=== PATIENT | female | born 1930 | race Caucasian/White ===

== ENCOUNTER 2016-11-25 08:41 | Day surgery (SDC) | payer MEDICARE ==
[~2016-11-25] VITALS: Ht 165.1 cm; Wt 61.0 kg
[2016-11-25 08:07] VITALS: BP 150/83; PULSE 59; RESP 16; O2SAT 96
[2016-11-25 08:32] VITALS: BP 184/87; PULSE 75; RESP 14; O2SAT 98
[2016-11-25 08:35] VITALS: BP 184/83; PULSE 70; RESP 16; O2SAT 96
[~2016-11-25 08:41] MED LIST: ALLERCLEAR PO; ASPI-973 PO; Acetaminophen PO; CHOL500011 PO; DOCU-41 PO; FURO-129 PO; GABA-500 PO; GUAI100G2 PO; LACT1CAP73 PO; LOVA20TA PO; MULT-1018 PO; PANT40TA3 PO; POLY17PO6 PO; THIO300C PO; VITA200C61 PO; [UNRECOGNIZED DRUG - OTHER] PO
[2016-11-25] MEDS ORDERED: MethylprednisoLONE Depot 80 mg/mL Inj ONE (08:42)
[2016-11-25] MEDS ORDERED: Iohexol 240 mg/mL 10 mL Inj ONE (08:42)
--- NOTE | 2016-11-25 14:55 | PCM.PROC ---
Procedure Note Date of Service: November 25, 2016 Pre Procedure Diagnosis: PROCEDURE: Lumbar Interlaminar epidural steroid injection. L5-S1 ASA / ANTI-COAGULATION . No asa x 7 days. PRE-PROCEDURE DIAGNOSIS: Lumbar spinal stenosis POST-PROCEDURE DIAGNOSIS: same INDICATION: 85-year-old patient with bilateral leg and back pain consistent with lumbar spinal stenosis with neurogenic claudication PERFORMED BY: Jhonny Brooks MD DESCRIPTION OF PROCEDURE: Patient was met in the holding area. Consent was signed, site was confirmed and all questions were answered. Patient was taken to the procedure suite and placed prone on the procedure table. Area was prepped and draped in sterile fashion. Local anesthesia with 1% lidocaine was injected. An 18-gauge Touhy needle was advanced toward the interlaminar space using fluoroscopic guidance after optimizing the AP view. A loss of resistance syringe was attached as we approached the epidural space in the lateral view. After [id number] was obtained, radioopaque contrast was injected under live fluro which confirmed epidural placement without intravascular uptake. Then , 80 mg depomedrol was injected without difficulty. ANESTHESIA: Local. EBL: None. No Blood Products Used COMPLICATIONS: None SPECIMENS: None POST-PROCEDURE DISPOSITION: Patient was returned to the holding area in stable condition. They were discharged home when all discharge criteria were met. Evaluation/Physical Exam before discharge revealed: DISCHARGE MEDICATIONS: FOLLOW UP: Return to clinic in 4 weeks Jhonny Brooks MD * Pain Management * Anesthesiology .ED: Y: Patient given care and follow up instructions Jhonny Brooks MD November 25, 2016 14:55
== END 2016-11-25 23:59 | disposition home or self-care (01) ==
LOC: END 08:41
PROVIDERS: ATTEND Anesthesiology Pain Medicine
DX: M48.06 Spinal stenosis, lumbar region (principal); G60.0 Hereditary motor and sensory neuropathy
CPT/HCPCS: 62323; J1040

== ENCOUNTER 2016-11-28 23:04 | Emergency (ER) | payer MEDICARE ==
[~2016-11-28] VITALS: Ht 165.1 cm; Wt 61.4 kg
[2016-11-28 23:09] VITALS: BP 191/98; PULSE 110; RESP 18
[2016-11-29 00:07] LABS: APPEARANCE,URINE CLEAR (CLEAR,HAZY); COLOR,URINE YELLOW (YELLOW); OCCULT BLOOD,URINE TRACE (NEGATIVE); PH,URINE 5.5 (5.0-8.0); UROBILINOGEN,URINE NORMAL (NORMAL)
--- NOTE | 2016-11-29 00:33 | ED.REPORT ---
HPI- Female Date of Service November 29, 2016 ED Provider: Kyler Grande MD An 85 year old female with a medical history including atrial fibrillation, Edyplzp-Bbvvj-Sqibg disease, UTI, and bladder cancer s/p TURBT x2 presents to the ED reporting foul-smelling urine onset today. The patient also reports mild lower abdominal pain and diarrhea. She denies other symptoms. The patient has had similar symptoms in the past associated with a UTI. Nursing Notes Stated Complaint: POSSIBLE UTI Chief Complaint: Female Abdominal Pain Nursing Notes Reviewed: Yes Allergies: Coded Allergies: hydroxyzine (Verified Allergy, Severe, profound hypotension, 11/24/15) meperidine (Verified Allergy, Severe, profound hypotension, 11/24/15) Quinolones (Verified Allergy, Mild, 11/24/15) hydrocodone (Verified Allergy, Mild, 11/24/15) amiodarone (Verified Allergy, Unknown, AVOID IN CMT DISEASE, 11/24/15) azithromycin (Verified Allergy, Unknown, unknown, 11/24/15) chloramphenicol (Verified Allergy, Unknown, AVOID IN CMT DISEASE, 11/24/15) cisplatin (Verified Allergy, Unknown, AVOID IN CMT DISEASE, 11/24/15) dapsone (Verified Allergy, Unknown, AVOID IN CMT DISEASE, 11/24/15) disulfiram (Verified Allergy, Unknown, AVOID IN CMT DISEASE, 11/24/15) doxazosin (Verified Allergy, Unknown, 12/02/15) doxorubicin HCl (Verified Allergy, Unknown, AVOID IN CMT DISEASE, 11/24/15) hydralazine (Verified Allergy, Unknown, AVOID IN CMT DISEASE, 11/24/15) isoniazid (Verified Allergy, Unknown, AVOID IN CMT DISEASE, 11/24/15) metronidazole (Verified Allergy, Unknown, AVOID IN CMT DISEASE, 11/24/15) nitrofurantoin (Verified Allergy, Unknown, AVOID IN CMT DISEASE, 11/24/15) paclitaxel (Verified Allergy, Unknown, AVOID IN CMT DISEASE, 11/24/15) penicillin G (Verified Allergy, Unknown, AVOID IN CMT DISEASE, 11/24/15) perhexiline (Verified Allergy, Unknown, AVOID IN CMT DISEASE, 11/24/15) phenytoin (Verified Allergy, Unknown, AVOID IN CMT DISEASE, 11/24/15) vincristine (Verified Allergy, Unknown, AVOID IN CMT DISEASE, 11/24/15) amoxicillin (Verified Adverse Reaction, Severe, diarrhea, 11/24/15) clavulanic acid (Verified Adverse Reaction, Severe, diarrhea, 11/24/15) omeprazole (Verified Adverse Reaction, Severe, diarrhea, 11/24/15) lithium (Verified Adverse Reaction, Unknown, USE WITH CAUTION IN CMT DISEASE, 11/24/15) sertraline (Verified Adverse Reaction, Unknown, USE WITH CAUTION IN CMT DISEASE, 11/24/15) Scheduled ([Calcimate]) 1 DOSE PO DAILY ([Allerclear]) 10 MG PO DAILY Alpha Lipoic Acid (Alpha Lipoic Acid) 300 Mg Capsule 300 MG PO BID Aspirin (Aspirin) 81 Mg Tablet 81 MG PO DAILY Cholecalciferol (Vitamin D3) (Vitamin D3) 5,000 Unit Tablet 5,000 UNIT PO DAILY Gabapentin (Gabapentin) 100 Mg Capsule 100 MG PO BID takes 100mg in am; 300mg @ hs Lactobacillus Combo No.11 (Probiotic) 1 Each Cap.sprink 1 EACH PO DAILY Lovastatin (Lovastatin) 20 Mg Tablet 20 MG PO DAILYWD Multivitamin (Multi Vitamin Daily) 1 Each Tablet 1 EACH PO DAILY Pantoprazole DR (Pantoprazole DR) 40 Mg Tablet 40 MG PO DAILYAC Polyethylene Glycol 3350 (Miralax) 17 Gm Powd.pack 17 GM PO DAILY Vitamin E (Dl,Tocopheryl Acet) (Vitamin E) 200 Unit Capsule 400 UNIT PO DAILY Scheduled PRN ([Acetaminophen]) 325 MG TABLET 325-650 MG PO Q4H PRN PRN For Mild Pain or Fever Docusate Sodium (Colace) 100 Mg Capsule 100 MG PO DAILY PRN PRN For Constipation Furosemide (Lasix) 20 Mg Tablet 20 MG PO DAILY PRN PRN PRN Guaifenesin (Mucinex) 100 Mg Gran.pack 400 MG PO DAILY PRN PRN PRN General Time Seen by MD: 00:29 Chief Complaint Other (Foul-Smelling Urine) Hx Obtained From: Patient Arrived By: Walk-in Sudden in Onset?: No Onset Occurred: 5 - 8 hours ago Symptom Duration: Since onset Location: : Abdomen lower Quality: Painful Severity: Current: Mild Severity: Maximum: Mild Pertinent Negative: Relieved by nothing Related History: Reports: Abdominal surgery, Cancer, Urinary tract infection Recent Healthcare: No recent doctor visit Similar Sx Previous: Yes Past Medical History Past Medical History Xxvplrx-Tohgj-Xbmty disease Osteopenia Osteoarthritis Hearing impairment Atrial fibrillation GERD Hiatal hernia Hemorrhoids Bladder CA s/p TURBT x2 Thyroid neoplasm s/p left hemithyroidectomy Reports: Cancer, Hyperlipidemia Past Surgical History Rectal fissurectomy Right breast mastectomy Left total hip arthroplasty Bilateral knees Rotator cuff repair TURBT x2 Cochlear implant Left hemithyroidectomy Partial hysterectomy Smoking History Never Smoker Social History Alcohol Use: Denies alcohol use Ambulatory Status Walker Review of Systems Review of Systems Note: + Foul-smelling urine Constitutional: Denies: Fever GI: Reports: Abdominal pain (Lower), Diarrhea, Denies: Nausea, Vomiting Complete sys rev & neg: except as marked. Respiratory: Denies: Non-productive cough, Shortness of breath Physical Exam Initial Vital Signs Vital Signs (First) Date Time Temp Pulse Resp B/P Pulse Ox O2 Delivery O2 Flow Rate FiO2 11/28/16 23:09 36.1 110 18 191/98 Room Air 11/29/16 01:16 98 Initial VS: Reviewed, Vital signs abnormal Head / Eyes: Atraumatic, Normocephalic ENT: Conjunctiva normal, No scleral icterus Neck: Supple, Full range of motion Respiratory: Breath sounds normal, Clear to auscultation, No respiratory distress Cardiovascular: Regular rate & rhythm, Heart sounds normal Abdomen / GI: Soft, Non-tender Skin: Warm, Dry, No cyanosis Neurologic: Alert, Oriented, Nonfocal Psychiatric: Mood/affect normal, Behavior normal, Normal thought content General/Constitutional: Awake, Alert Interpretation & Diagnostics URINE DIPSTICK: Bedside Urine Specific [place] * 1.020 Bedside Urine pH * 5 Bedside Urine Nitrite * Positive Bedside Urine Protein * Trace Bedside Urine Glucose * Normal Bedside Urine Ketones * + Small Bedside Urine Urobilinogen * Normal Bedside Urine Bilirubin * Negative Bedside Urine Occult Blood * ~50 [place]/ml Urine to Lab * Yes Lab Results Interpretation Test 11/28/16 23:40 Urine Color Yellow (YELLOW) Urine Appearance Clear (CLEAR,HAZY) Urine pH 5.5 (5.0-8.0) Urine Specific [place] 1.020 (1.003-1.035) Urine Protein Negativemg/dL (NEG,TRACE) Urine Glucose (UA) Negativemg/dL (NEGATIVE) Urine Ketones Tracemg/dL (NEGATIVE) Urine Occult Blood Trace (NEGATIVE) Urine Nitrite Positive (NEGATIVE) Urine Bilirubin Negative (NEGATIVE) Urine Urobilinogen Normalmg/dL (NORMAL) Urine Leukocyte Esterase Negative (NEGATIVE) Urine RBC 0-2/hpf (0-2) Urine WBC 6-10/hpf (0-5) Urine Epithelial Cells Few/hpf (NONE-MOD) Urine Crystals None seen (NONE SEEN) Urine Bacteria Many/hpf (NONE-FEW) Urine Hyaline Casts None/lpf (NONE) Urine Granular Casts None seen (NONE SEEN) Urine Waxy Casts None seen (NONE SEEN) Urine Red Blood Cell Casts None seen (NONE SEEN) Urine White Blood Cell Casts None seen (NONE SEEN) Urine Mucus Present (None Seen) Urine Trichomonas None seen (NONE SEEN) Urine Yeast None (NONE SEEN) Urine Culture Reflexed Indicated Hold Urine Received (Received) Lab Results Interpretation: Urinary tract infection, culture pending Re-Eval/Medical Decision Med Decision/Clinical Course 85-year-old female with typical symptoms of urinary tract infection, confirmed by urinalysis. Culture pending. No evidence of sepsis or serious systemic illness or pyelonephritis. Source of Hx: Old records Re-Evaluation/Progress : Time of Eval: 00:54 Patient Status: Condition improved Re-Evaluation/Progress Note: Discussed with patient lab results, diagnosis, and plan for discharge. Follow-up and return to the ER instructions given. Patient agrees with plan for care and all questions were addressed. Counseled Regarding: Diagnosis, Lab results, Need for follow-up, When/why to return to ED Discharge & Departure Impression: Primary Impression: Urinary tract infection Urinary tract infection type: acute cystitis Hematuria presence: without hematuria Qualified Code: N30.00 - Acute cystitis without hematuria Disposition: Home Discharge Condition All VS Reviewed: Yes Condition: No Change Patient Instructions: Urinary Tract Infection in Women (GEN) Additional Instructions: You have a urine infection. Culture is pending. Drink plenty of fluids and cranberry juice. Cephalexin (Keflex) 500 mg by mouth 3 times a day, #30 dispensed. Follow-up with your regular doctor in 2 or 3 days if you are not improving to check the urine culture results. Urine recheck in 2-3 weeks once the antibiotic is gone to make sure that the infection is gone. Referrals: Aimee Barakat MD (PCP) Scribe Attestation Portions of this note were transcribed by Nathaly James. I, Dr. Grande, personally performed the history, physical exam, and medical decision-making; I reviewed and confirmed the accuracy of the information in the transcribed note. Signed by: Issa Borjas, 11/29/2016, 02:00 copies to: Aimee Barakat MD, Howard L MD November 29, 2016 00:32 NATHALY JAMES November 29, 2016 00:46
[2016-11-29 01:16] VITALS: BP 132/70; PULSE 78; RESP 16; O2SAT 98
[2016-11-29] MEDS ORDERED: _Cephalexin 500 mg Capsule PO SCH (08:30)
== END 2016-11-29 01:19 | disposition home or self-care (01) ==
LOC: SED 23:04
DX: N30.00 Acute cystitis without hematuria (principal); B96.1 Klebsiella pneumoniae [K. pneumoniae] as the cause of diseases classified elsewhere; I48.91 Unspecified atrial fibrillation; G60.0 Hereditary motor and sensory neuropathy; K21.9 Gastro-esophageal reflux disease without esophagitis; Z85.3 Personal history of malignant neoplasm of breast; Z85.51 Personal history of malignant neoplasm of bladder; Z90.11 Acquired absence of right breast and nipple; Z90.710 Acquired absence of both cervix and uterus; Z79.82 Long term (current) use of aspirin; Z90.89 Acquired absence of other organs; Z88.0 Allergy status to penicillin; Z88.8 Allergy status to other drugs, medicaments and biological substances; Z88.5 Allergy status to narcotic agent; Z88.1 Allergy status to other antibiotic agents